=== PATIENT | male | born 1970 | race Caucasian/White ===

== ENCOUNTER → 2021-03-20 06:58 | Outpatient (CLI) | payer OTHER, SELFPAY ==
[2021-03-20 08:01] LABS: Add Manual Diff / Slide Review NO; Basophils Absolute Auto 0 /uL (0-100); Basophils Percent Auto 0.5 % (0-2); Eosinophils Absolute Auto 200 /uL (0-450); Eosinophils Percent Auto 2.7 % (2-4); Hematocrit 45.2 % (41-53); Hemoglobin 14.9 g/dL (13.5-17.5); Lymphocytes Absolute Auto 2400 /uL (1100-4500); Lymphocytes Percent Auto 37.9 % (25-40); Mean Corpuscular Hemoglobin 28.1 PG (26-34); Monocytes Absolute Auto 700 /uL (0-900); Neutrophils Absolute Auto 3000 /uL (1500-7000); Neutrophils Percent Auto 47.9 % (50-75); Platelet Count 205 X10^3/uL (150-400); Red Blood Cell Count 5.32 X10^6/uL (4.5-5.9); Red Cell Distribution Width 14.6 % (11.6-14.8); White Blood Cell Count 6.4 X10^3/uL (4.5-11.0)
[2021-03-20 08:21] LABS: Alanine Aminotransferase 43 IU/L (<50); Albumin 4.1 g/dL (3.5-5.0); Albumin Globulin Ratio 1.5 (1.0-2.8); Alkaline Phosphatase 39 U/L (38-126); Aspartate Aminotransferase 50 IU/L (17-59); BUN Creatinine Ratio 14.6 (6-22); Bilirubin Total 0.7 mg/dL (0.2-1.3); Blood Urea Nitrogen 13 mg/dL (9-20); Calcium 8.9 mg/dL (8.4-10.2); Carbon Dioxide 29 mmol/L (22-32); Chloride 100 mmol/L (98-107); Cholesterol 210 mg/dL (140-199); Estimated Glomerular Filt Rate > 60.0 mL/min (>60); Globulin 2.7 g/dL (1.7-4.1); Glucose 99 mg/dL (70-100); HDL Cholesterol 43 mg/dL (40-60); HEMOLYSIS < 15 (0-50); LDL Cholesterol Calculated 155 mg/dL (<100); Potassium 4.1 mmol/L (3.4-5.1); Sodium 135 mmol/L (137-145); Total Protein 6.8 g/dL (6.3-8.2); Triglycerides 60 mg/dL (35-150)
== END ==
PROVIDERS: PCP Family Medicine; Referring Provider Family Medicine; Visit Provider Family Medicine
DX: Z13.1 Encounter for screening for diabetes mellitus (principal); Z13.220 Encounter for screening for lipoid disorders
CPT/HCPCS: 36415; 80053; 80061; 85025

== ENCOUNTER → 2021-04-07 13:02 | Outpatient (CLI) | payer OTHER, SELFPAY ==
[2021-04-07 13:31] LABS: COVID19 -Nasal RAPID Negative (Negative)
== END ==
PROVIDERS: PCP Family Medicine; Visit Provider Specialist
DX: Z20.822 Contact with and (suspected) exposure to COVID-19 (principal)
CPT/HCPCS: 87635; C9803

== ENCOUNTER 2021-04-08 09:07 | Day surgery (SDC) | payer OTHER, SELFPAY ==
[2021-04-08] VITALS (8 sets, daily range): BP systolic 114–153; BP diastolic 11–72; PULSE 69–90; RESP 12–20; TEMP 36.3–36.7; O2SAT 91–94; BMI 34.7
[2021-04-08] MEDS: LACTATED RINGERS 1,000 ML 42 ML IV (09:46)
--- NOTE | 2021-04-08 09:50 | PM.HP.1 ---
History of Present Illness History of Present Illness Date Patient Seen: 04/08/21 Time Patient Seen: 09:50 Chief complaint: [facility] [place] Narrative: The patient is a gentleman here for repair of an umbilical hernia. It is longstanding. Skin over it is thinned out. Patient History Medical History Chicken pox (~1972) Obesity with body mass index (BMI) of 30.0 to 39.9 Family & Social History Family History Father Diabetes mellitus Mother Hypertension Diabetes mellitus Breast cancer Sister Hypertension Mental health problem Obesity Cervical cancer Grandfather No problems noted. Grandmother Diabetes mellitus Hypertension Stroke Grandfather No problems noted. Grandmother Cancer Social History: household members spouse Tobacco & Substance use: Smoking Status Never smoker alcohol intake current alcohol intake frequency holiday/special occasion Substance Use Type does not use Meds Home Medications and Allergies Home Medications Medication Instructions Recorded Confirmed Type cholecalciferol (vitamin D3) 10 10 mcg PO DAILY 01/15/21 04/08/21 History mcg (400 unit) capsule multivitamin 1 tab PO DAILY 01/15/21 04/08/21 History Allergies Allergy/AdvReac Type Severity Reaction Status Date / Time adhesive Allergy Intermediate Rash Verified 04/08/21 09:34 Review of Systems Review of Systems ROS: Yes All systems reviewed with the patient and are negative except as otherwise documented Exam Vital Signs (past 8 hours): - 04/08/21 09:45 Temperature 98.1 F Pulse Rate 85 Respiratory Rate 20 Blood Pressure 153/11 H Pulse Oximetry 94 Oxygen Delivery Method Room Air Narrative Exam Narrative: Cooperative in no apparent distress lungs are clear no rales or rhonchi heart regular rate and rhythm no murmur gallop abdomen is protuberant soft he has very thinned out skin overlying a reducible umbilical hernia. Patient is alert and oriented x3. Assessment & Plan Assessment and plan (1) Reducible umbilical hernia: Problem details: I have discussed the operation with him including risks of bleeding infection my concern for recurrence. I talked to him about restrictions after the procedure. Will use mesh if possible. He may lose a lot of the skin at his belly button and may have a very abnormal 1 when I am completed. All questions were answered. Status: Acute
--- NOTE | 2021-04-08 09:52 | PM.PREOP ---
Pre-operative Note COVID-19 COVID-19 status: Negative Result date/Date tested (Pos, Neg/Pending): 04/07/21 Interval Note History & Physical reviewed/Exam performed by Physician: Yes Changes to H&P: No
[2021-04-08] MEDS: CEFAZOLIN 2 GM/100 ML FROZ.PIGGY IV (10:00)
[2021-04-08] MEDS: BUPIVACAINE 0.5% (PF) VIAL 30 ML INJ (10:18)
--- NOTE | 2021-04-08 11:24 | PM.OP.1 ---
Operative Date/Time/Diagnoses Date of procedure: 04/08/21 Time of procedure: 11:24 Pre-op diagnosis: Umbilical hernia incarcerated Post-op diagnosis: same (Omentum densely adherent to the sac and actually forming part of the wall.) Procedure & Clinicians Procedure: Primary repair of umbilical hernia Same procedure as scheduled: Yes Indications: Symptomatic hernia with very 10 UA did skin over it. Surgeon: Fredi Alegria Click Yes if Unassisted: Yes Anesthesia Type: General Operative Notes Findings: Small defect. The omentum could not be reduced through it and it was ligated and the distal portion removed to allow for repair. Closure Type: primary Specimen(s): none sent Prosthetic devices, grafts, tissues, transplants, or devices: None Estimated Blood Loss (mL): 5 Blood products transfused: none Procedure in detail: The patient is placed supine on the operating room table and underwent general LMA anesthesia. He was prepped and draped in the usual fashion. Curvilinear incision was made in the infraumbilical fold and carried down to the level of the hernia sac which was rather large for a primary umbilical hernia. I the sac from surrounding tissues including the overlying skin. I entered it it contained omentum. I could not reduce it through the small fascial defect. There were areas that it was densely adherent to and in the inferior and superior portions the omentum appeared to be forming part of the wall or within the wall of the peritoneal sac. I chose to ligate the omentum because of its large size in comparison to the very small fascial defect and removed the distal portion. This allowed me to clear the fascial edge and reduce the peritoneum. With the fascial edge cleared I then placed 2 figure of 8 1. Ethibond sutures to repair the defect. The skin actually looked viable at completion and therefore I decided not to resect the skin but to tack it down to the fascia and created an inny belly button. The subcu was closed with interrupted 3-0 Vicryl the skin was closed a running 4-0 Vicryl subcuticular stitch. Because the patient is allergic to adhesive tape I chose to seal the wound with Dermabond. The patient was awakened and extubated and taken the recovery area in good condition. Complications: none Post-operative Condition: stable Disposition: PACU
[2021-04-08] MEDS: OXYCODONE/ACETAMINOPHEN 5/325 TABLET 1 TAB PO (11:25)
--- NOTE | 2021-04-08 12:04 | SUR.PHASEII ---
Phase to discharge instructions and IV dc by Samina Shi RN
== END 2021-04-08 12:09 | disposition home or self-care (01) ==
PROVIDERS: PCP Family Medicine; Referring Provider Specialist; Visit Provider Specialist
PROC: (CPT 49585; principal; 2021-04-08 10:15)
DX: K42.9 Umbilical hernia without obstruction or gangrene (principal); K66.0 Peritoneal adhesions (postprocedural) (postinfection); E66.9 Obesity, unspecified
CPT/HCPCS: 49585; 82962; J0690; J1100; J1885; J2250; J2405; J2704; J3010